=== PATIENT | female | born 1980 | race Caucasian/White ===

== ENCOUNTER 2018-05-09 17:01 | Observation (INO) | payer OTHER, BC ==
--- NOTE | 2018-05-09 17:25 | PDOC ---
Rapid Medical Evaluation Time Seen by Provider: 05/09/18 17:24 Medical Evaluation: Allergies Allergy/AdvReac Type Severity Reaction Status Date / Time No Known Allergies Allergy Verified 05/09/18 17:21 05/09/18 17:24 I have performed a brief in-person evaluation of this patient. The patient presents with a chief complaint of: R sided abd pain w/ n/v x 3 days Pertinent physical exam findings:Stable and well [place] w/ +ttp to RUQ I have ordered the following: labs The patient will proceed to the ED for further evaluation. 05/09/18 17:26 Discharge Disposition - Diagnosis Abdominal pain Qualifiers: Abdominal location: right upper quadrant Qualified Code(s): R10.11 - Right upper quadrant pain - Referrals - Patient Instructions - Post Discharge Activity
--- NOTE | 2018-05-09 19:16 | PDOC ---
History of Present Illness - General Chief Complaint: Pain, Acute Stated Complaint: RT SIDED ABD PAIN Time Seen by Provider: 05/09/18 17:24 History Source: Patient Exam Limitations: No Limitations - History of Present Illness Initial Comments: 05/09/18 20:59 37F with pmh of DM1 presents to the ED for URQ abdominal pain radiating down the lower abdoment. Had multiple episode of non-bilious vomiting today and pain is worse than it's even been, No hisory of gallstones, kidney stones, appendicitis, diarrhea. 05/09/18 21:04 Past History - Past Medical History Allergies/Adverse Reactions: Allergies Allergy/AdvReac Type Severity Reaction Status Date / Time No Known Allergies Allergy Verified 05/09/18 17:21 Asthma: Yes COPD: No Diabetes: Yes - Suicide/Smoking/Psychosocial Hx Smoking History: Never smoked Review of Systems - Review of Systems Able to Perform ROS?: Yes Is the patient limited Italian proficient: No Constitutional: No: Symptoms Reported HEENTM: No: Symptoms Reported Respiratory: No: Symptoms reported Cardiac (ROS): No: Symptoms Reported ABD/GI: Yes: See HPI : No: Symptoms Reported Musculoskeletal: No: Symptoms Reported Integumentary: No: Symptoms Reported Neurological: No: Symptoms reported All Other Systems: Reviewed and Negative *Physical Exam - Vital Signs Last Vital Signs Temp Pulse Resp BP Pulse Ox 98.4 F 106 H 19 130/76 98 05/09/18 17:22 05/09/18 17:22 05/09/18 17:22 05/09/18 17:22 05/09/18 17:22 - Physical Exam General Appearance: Yes: Nourished, Appropriately Dressed. No: Apparent Distress HEENT: positive: EOMI, BARB, Normal ENT Inspection Respiratory/Chest: positive: Lungs Clear, Normal Breath Sounds. negative: Chest Tender, Respiratory Distress Cardiovascular: positive: Regular Rhythm, S1, S2, Tachycardia Gastrointestinal/Abdominal: positive: Normal Bowel Sounds, Tender (Upper right quadrant, positive solorzano), Flat, Soft Musculoskeletal: positive: Normal Inspection. negative: CVA Tenderness Extremity: positive: Normal Capillary Refill, Normal Inspection, Normal Range of Motion Integumentary: positive: Normal Color, Dry, Warm Neurologic: positive: Fully Oriented, Alert, Normal Mood/Affect, Normal Response ED Treatment Course - LABORATORY CBC & Chemistry Diagram: 05/09/18 19:53 05/09/18 19:53 Medical Decision Making - Medical Decision Making 05/09/18 21:07 Basic labs normal, sugar slightly elevated, will start on fluids. Bedside US, positive sonography Solorzano's seems positive for sludge and stone. Official Ultrasound negative except for diffuse fatty infiltration of liver. Called Dr. Kern radiologist for second read as it appeear to be sludge in the gallbladder . Will reassess patient and dispo. 05/09/18 23:24 CT Abdomen: 1. Diffuse fatty infiltration of the liver. 2. Cholelithiasis without evidence of acute cholecystitis. 3. Multiple appendicoliths with no CT evidence of acute appendicitis. 4. Right ovarian cyst. Please see above discussion. *DC/Admit/Observation/Transfer Diagnosis at time of Disposition: Abdominal pain Qualifiers: Abdominal location: right upper quadrant Qualified Code(s): R10.11 - Right upper quadrant pain - Discharge Dispostion Disposition: HOME Condition at time of disposition: Improved Decision to Admit order: No - Referrals Referrals: Michael Smith MD [Staff Physician] - - Patient Instructions Printed Discharge Instructions: DI for Gallstones Additional Instructions: Follow up with your squash centre manager Dr. Smith within the next or if symptoms persist. Come back to the ER for any new, worsening or concerning symptom. - Post Discharge Activity
--- NOTE | 2018-05-09 19:19 | PDOC ---
Attending Attestation - HPI HPI: 05/09/18 20:17 The patient is a 37 year old female with a significant PMH of diabetes and c- section who presents to the emergency department with right sided abdominal pain for 3 days. She describes her abdominal pain as crampy and a 5/10 in intensity. She states that her abdominal pain radiates to her right thigh and she feels bloated. The patient reports that she finished her menstrual period 3 days ago. The patient states that she thought her pain was associated with her period but states that her menstrual period ended prior to the onset of abdominal pain. She reports some associated nausea and an episode of emesis at 2 :30pm today. She denies any alcohol , drug use or smoking. The patient denies any flank pain or rashes. She denies any other symptoms. She denies any fever, chills, diarrhea, constipation or urinary symptoms. She denies any chest pain, shortness of breath, headache and dizziness. The patient denies any other complaints. - Physicial Exam PE: 05/09/18 20:17 GENERAL: Awake, alert, and fully oriented, in no acute distress HEAD: No signs of trauma EYES: PERRLA, EOMI, sclera anicteric, conjunctiva clear ENT: Auricles normal inspection, hearing grossly normal, nares patent, oropharynx clear without exudates. Moist mucosa NECK: Normal ROM, supple, no lymphadenopathy, JVD, or masses LUNGS: Breath sounds equal, clear to auscultation bilaterally. No wheezes, and no crackles HEART: Regular rate and rhythm, normal S1 and S2, no murmurs, rubs or gallops ABDOMEN: (+)minimum rebound at RUQ, pain with palpation or right upper quadrant with equal intensity. Soft, nontender, normoactive bowel sounds. No guarding. No masses EXTREMITIES: Normal range of motion, no edema. No clubbing or cyanosis. No cords, erythema, or tenderness NEUROLOGICAL: Cranial nerves II through XII grossly intact. Normal speech, normal gait SKIN: Warm, Dry, normal turgor, no rashes or lesions noted. Documentation prepared by Terri Carr, acting as medical and health services manager for Phuong Kaufman MD. <Terri Carr - Last Filed: 05/09/18 20:17> - Resident Resident Name: Garfield Casillas - ED Attending Attestation I have performed the following: I have examined & evaluated the patient, The case was reviewed & discussed with the resident, I agree w/resident's findings & plan - Medical Decision Making 05/09/18 21:10 Labs normal; exam normal, other than mild right sided pain. Sono normal. 05/10/18 00:02 Surgery wants to observe the patient overnight; we will admit to the hospitalist under med surg obs. Surgeon is requesting that we REFRAIN from giving analgesics and antibiotics overnight. 6AM pre-op labs requested. Finally pt will be reevaluated tomorrow. <Phuong Kaufman - Last Filed: 05/10/18 00:50>
[2018-05-09] MEDS ORDERED: SODIUM CHLORIDE 1,000 ML IV STA (19:55)
[2018-05-09 20:12] LABS: BASO % 0.7 % (0-2.0); EOS % 1.3 % (0-4.5); HEMATOCRIT 41.8 % (32.4-45.2); HEMOGLOBIN 14.3 GM/dL (10.7-15.3); LYMPH % 22.6 % (8-40); MCH 28.1 pg (25.7-33.7); MCHC 34.1 g/dl (32.0-36.0); MEAN CELL VOLUME 82.2 fl (80-96); MEAN PLT VOLUME 8.7 fl (7.5-11.1); MONO % 5.8 % (3.8-10.2); NEUT % 69.6 % (42.8-82.8); PLATELET COUNT 394 K/MM3 (134-434); RBC 5.08 M/mm3 (3.60-5.2); RDW 13.4 % (11.6-15.6); WHITE BLOOD COUNT 9.4 K/mm3 (4.0-10.0)
[2018-05-09 20:36] LABS: ALBUMIN 3.5 g/dl (3.4-5.0); ANION GAP 8 (8-16); BILIRUBIN,TOTAL 0.3 mg/dL (0.2-1.0); BLOOD UREA NITROGEN 12 mg/dL (7-18); CHLORIDE 102 mmol/L (98-107); CO2 29 mmol/L (21-32); CREATININE 0.4 mg/dL (0.55-1.02); GLUCOSE,RANDOM 168 mg/dL (74-106); POTASSIUM 4.2 mmol/L (3.5-5.1); SGOT/AST 17 U/L (15-37); SGPT/ALT 31 U/L (12-78); SODIUM 139 mmol/L (136-145); TOT PROT 7.6 g/dl (6.4-8.2)
[2018-05-09 20:37] LABS: ALK PHOS 90 U/L (45-117)
[2018-05-09 20:42] LABS: LIPASE 380 U/L (73-393)
[2018-05-09 20:44] LABS: URINE APPEARANCE CLOUDY; URINE BILIRUBIN NEGATIVE (<2.0 mg/dL); URINE COLOR AMBER; URINE GLUCOSE (UA) 3+ (NEGATIVE); URINE KETONE NEGATIVE (NEGATIVE); URINE LEUK ESTERASE NEGATIVE (NEGATIVE); URINE NITRITE NEGATIVE (NEGATIVE); URINE UROBILINOGEN NEGATIVE mg/dL (0.2-1.0)
[2018-05-09 20:45] LABS: URINE PROTEIN 1+ (NEGATIVE)
[2018-05-09 21:08] LABS: EPI CELLS RARE /HPF (FEW); URINE MUCUS RARE
--- NOTE | 2018-05-10 00:59 | PDOC ---
*Physical Exam - Vital Signs Last Vital Signs Temp Pulse Resp BP Pulse Ox 98.4 F 106 H 19 130/76 98 05/09/18 17:22 05/09/18 17:22 05/09/18 17:22 05/09/18 17:22 05/09/18 17:22 ED Treatment Course - LABORATORY CBC & Chemistry Diagram: 05/11/18 06:00 05/11/18 06:00 - ADDITIONAL ORDERS Additional order review: Laboratory Results 05/09/18 05/09/18 05/09/18 19:53 19:25 19:25 Sodium 139 Potassium 4.2 Chloride 102 Carbon Dioxide 29 Anion Gap 8 BUN 12 Creatinine 0.4 L Creat Clearance w eGFR > 60 Random Glucose 168 H Calcium 10.0 Total Bilirubin 0.3 AST 17 ALT 31 Alkaline Phosphatase 90 Total Protein 7.6 Albumin 3.5 Lipase 380 Urine Color Hattie Urine Appearance Cloudy Urine pH 6.0 Ur Specific [place] 1.013 Urine Protein 1+ H Urine Glucose (UA) 3+ H Urine Ketones Negative Urine Blood 1+ H Urine Nitrite Negative Urine Bilirubin Negative Urine Urobilinogen Negative Ur Leukocyte Esterase Negative Urine WBC (Auto) 1 Urine RBC (Auto) <1 Ur Epithelial Cells Rare Urine Mucus Rare Urine HCG, Qual Negative 05/09/18 19:53 RBC 5.08 MCV 82.2 MCHC 34.1 RDW 13.4 MPV 8.7 Neutrophils % 69.6 Lymphocytes % 22.6 Monocytes % 5.8 Eosinophils % 1.3 Basophils % 0.7 - RADIOLOGY Radiology Studies Ordered: Category Date Time Status ABDOMEN US -LIMITED [US] Stat Ultrasound 05/09/18 19:56 Completed - Medications Given in the ED: ED Medications Discontinued Medications Generic Name Dose Route Start Last Admin Trade Name Freq PRN Reason Stop Dose Admin Sodium Chloride 1,000 mls @ 1,000 mls/hr 05/09/18 19:55 05/09/18 20:15 Normal Saline - IV 05/09/18 20:54 1,000 mls/hr ASDIR STA Administration Medical Decision Making - Medical Decision Making 05/12/18 20:54 Surgery is asking that we refrain from giving patient pain control or antibiotics. Patient admitted to med surg observation *DC/Admit/Observation/Transfer Diagnosis at time of Disposition: Abdominal pain - Discharge Dispostion Condition at time of disposition: Stable Decision to Admit order: Yes - Referrals - Patient Instructions - Post Discharge Activity
[2018-05-10 03:17] VITALS: BMI 26.3
--- NOTE | 2018-05-10 04:09 | PN ---
Teaching Attending Note Name of Resident: Rachell Cook ATTENDING PHYSICIAN STATEMENT I saw and evaluated the patient. I reviewed the resident's note and discussed the case with the resident. I agree with the resident's findings and plan as documented. SUBJECTIVE: Patient is a 37 year old woman history of insulin-treated DM and who presents to the ER with right sided abdominal pain for 3 days. She describes her abdominal pain as crampy and a 5/10 in intensity. She states that her abdominal pain radiates to her right thigh and she feels bloated. The patient reports that she finished her menstrual period 3 days ago. The patient states that she thought her pain was associated with her period but states that her menstrual period ended prior to the onset of abdominal pain. She reports some associated nausea and an episode of vomiting today. She denies any alcohol use, drug use or smoking. The patient denies chills, diarrhea, urinary symptoms, shortness of breath, or headache. OBJECTIVE: Alert. In no acute distress Vital Signs Period Temp Pulse Resp BP Sys/[place] Pulse Ox Last 24 Hr 98.0 F-98.4 F 106-111 18-19 130-137/76-84 98-100 HEENT: No Jaundice, eye redness or discharge, PERRLA, EOMI. Normocephalic, atraumatic. External ears are normal and hearing is grossly intact. No nasal discharge. Neck: Supple, nontender. No palpable adenopathy or thyromegaly. No JVD Chest: Good effort. Clear to auscultation and percussion. Heart: Regular. No S3, rub or murmur Abdomen: Not distended, soft, RUQ tenderness; no HSM. No rebound or guarding. Normoactive bowel sounds. Ext: Peripheral pulses intact. No leg edema. Skin: Warm and dry. No petechiae, rash or ecchymosis. Neuro: Alert. Oriented x3. CN 2-12 grossly intact. Sensation grossly intact in all four extremities and DTR are symmetric. Abnormal Lab Results 05/09/18 05/09/18 19:25 19:53 Creatinine 0.4 L Random Glucose 168 H Urine Protein 1+ H Urine Glucose (UA) 3+ H Urine Blood 1+ H ASSESSMENT AND PLAN: 1. Abdominal pain - Main concern is for appendicitis. CT abdomen shows multiple appendicoliths, right ovarian cyst, cholelithiaisis and fatty liver. oracle manufacturing consultant recommends no antibiotics or analgesics for now. Patient will be monitored closely and revaluated in the morning by the surgeon with possible repeat CT scan of the abdomen if she remains symptomatic . Meantime, will keep her NPO and give with IV NS at 75 ml/hour. 2. DM - For now, we will hold the home diabetes drugs and implement sliding scale insulin regimen. Provide comprehensive diabetes care with patient teaching and counseling about the importance of euglycemia, eye care and foot care. 3. DVT prophylaxis - Heparin 5000u sq tid. 4. Advance directives - Full code
--- NOTE | 2018-05-10 05:50 | HP ---
CHIEF COMPLAINT: Right Abdominal Pain PCP: HISTORY OF PRESENT ILLNESS: 37 y/o F presents with right sided abdominal pain accompanied with bloating, nausea and NBNB vomiting for the past 3 days. This is the first time she has experienced pain like this. She describes the pain as 5/10, crampy pain that travels from her RUQ to the lower quadrant and upper thigh. Patient says she has been unable to roll over or turn to often as these cause pain. Denies any remitting or exacerbating factors. Of note, patient has completed her menstrual period 3 days ago. Patient denies fevers, chills, chest pain, SOB, diarrhea, constipation. ER course was notable for: (1) ABD US, CTAP (2) UA: 1+ Protein, 3+ Glucose, 1+ blood, 1 wbc (3) Recent Travel: Denies PAST MEDICAL HISTORY: IDDM Asthma PAST SURGICAL HISTORY: x1 Social History: Smoking: Denies Alcohol: Denies Drugs: Denies Family History: DM HTN HLD Kidney failure Stroke Fatty liver Allergies No Known Allergies Allergy (Verified 05/09/18 17:21) HOME MEDICATIONS: REVIEW OF SYSTEMS CONSTITUTIONAL: Absent: fever, chills, diaphoresis, generalized weakness, malaise, loss of appetite, weight change HEENT: Absent: rhinorrhea, nasal congestion, throat pain, throat swelling, difficulty swallowing, mouth swelling, ear pain, eye pain, visual changes CARDIOVASCULAR: Absent: chest pain, syncope, palpitations, irregular heart rate, lightheadedness , peripheral edema RESPIRATORY: Absent: cough, shortness of breath, dyspnea with exertion, orthopnea, wheezing, stridor, hemoptysis GASTROINTESTINAL: Present: abdominal pain,, nausea, vomiting, Absent: abdominal distension, diarrhea, constipation, melena, hematochezia GENITOURINARY: Absent: dysuria, frequency, urgency, hesitancy, hematuria, flank pain, genital pain MUSCULOSKELETAL: Absent: myalgia, arthralgia, joint swelling, back pain, neck pain SKIN: Absent: rash, itching, pallor HEMATOLOGIC/IMMUNOLOGIC: Absent: easy bleeding, easy bruising, lymphadenopathy, frequent infections ENDOCRINE: Absent: unexplained weight gain, unexplained weight loss, heat intolerance, cold intolerance NEUROLOGIC: Absent: headache, focal weakness or paresthesias, dizziness, unsteady gait, seizure, mental status changes, bladder or bowel incontinence PSYCHIATRIC: Absent: anxiety, depression, suicidal or homicidal ideation, hallucinations. PHYSICAL EXAMINATION Vital Signs - 24 hr 05/09/18 05/10/18 05/10/18 17:22 01:08 02:30 Temperature 98.4 F 98.0 F Pulse Rate 106 H 111 H Pulse Rate [ Left Radial] Respiratory 19 18 Rate Blood Pressure 130/76 137/84 Blood Pressure [Left Arm] O2 Sat by Pulse 98 98 Oximetry (%) 05/10/18 02:33 Temperature 98.0 F Pulse Rate Pulse Rate [ 111 H Left Radial] Respiratory 18 Rate Blood Pressure Blood Pressure 137/84 [Left Arm] O2 Sat by Pulse 100 Oximetry (%) GENERAL: Awake, alert, and fully oriented, in no acute distress. EYES: PERRL, EOMI, sclera anicteric. THROAT: Oropharynx clear without exudates. Moist mucous membranes. NECK: No JVD LUNGS: Breath sounds equal, clear to auscultation bilaterally. No wheezes. HEART: Regular rate and rhythm, normal S1 and S2 without murmur, rub or gallop. ABDOMEN: Soft, RUQ Tender to palpation, not distended, normoactive bowel sounds , no guarding, no rebound. MUSCULOSKELETAL: Normal range of motion at all joints. No CVA tenderness. EXTREMITIES: 2+ pulses, No peripheral edema. NEUROLOGICAL: Cranial nerves II-XII intact. Gross sensation intact in all four extremities. Laboratory Results - last 24 hr 05/09/18 05/09/18 05/09/18 19:25 19:25 19:53 WBC 9.4 RBC 5.08 Hgb 14.3 Hct 41.8 MCV 82.2 MCH 28.1 MCHC 34.1 RDW 13.4 Plt Count 394 MPV 8.7 Absolute Neuts (auto) 6.6 Neutrophils % 69.6 Lymphocytes % 22.6 Monocytes % 5.8 Eosinophils % 1.3 Basophils % 0.7 Nucleated RBC % 0 Sodium Potassium Chloride Carbon Dioxide Anion Gap BUN Creatinine Creat Clearance w eGFR Random Glucose Calcium Total Bilirubin AST ALT Alkaline Phosphatase Total Protein Albumin Lipase Urine Color Hattie Urine Appearance Cloudy Urine pH 6.0 Ur Specific [place] 1.013 Urine Protein 1+ H Urine Glucose (UA) 3+ H Urine Ketones Negative Urine Blood 1+ H Urine Nitrite Negative Urine Bilirubin Negative Urine Urobilinogen Negative Ur Leukocyte Esterase Negative Urine WBC (Auto) 1 Urine RBC (Auto) <1 Ur Epithelial Cells Rare Urine Mucus Rare Urine HCG, Qual Negative 05/09/18 19:53 WBC RBC Hgb Hct MCV MCH MCHC RDW Plt Count MPV Absolute Neuts (auto) Neutrophils % Lymphocytes % Monocytes % Eosinophils % Basophils % Nucleated RBC % Sodium 139 Potassium 4.2 Chloride 102 Carbon Dioxide 29 Anion Gap 8 BUN 12 Creatinine 0.4 L Creat Clearance w eGFR > 60 Random Glucose 168 H Calcium 10.0 Total Bilirubin 0.3 AST 17 ALT 31 Alkaline Phosphatase 90 Total Protein 7.6 Albumin 3.5 Lipase 380 Urine Color Urine Appearance Urine pH Ur Specific [place] Urine Protein Urine Glucose (UA) Urine Ketones Urine Blood Urine Nitrite Urine Bilirubin Urine Urobilinogen Ur Leukocyte Esterase Urine WBC (Auto) Urine RBC (Auto) Ur Epithelial Cells Urine Mucus Urine HCG, Qual Active Medications Heparin Sodium (Porcine) (Heparin -) 5,000 unit SQ TID [place] Sodium Chloride (Normal Saline -) 1,000 mls @ 75 mls/hr IV ASDIR [place] IMAGING: - Abdominal US: Diffuse fatty infiltration of the liver - CT A/P: Diffuse fatty infiltration of the liver, Cholelithiasis without evidence of acute cholecystitis, Multiple appendicoliths with no CT Evidence of acute appendicitis, Right ovarian cyst ASSESSMENT/PLAN: 37 y/o F presents with right sided abdominal pain accompanied with bloating, nausea and NBNB vomiting for the past 3 days was found to have cholelithiasis and multiple appendicoliths, and was admitted to r/o cholecystitis and appendicitis. 1. Abdominal pain - R/o cholecystitis and appendicitis - RUQ Tenderness that radiates down to the thigh, AFebrile, No WBC Count - CT A/P: Cholelithiasis without evidence of acute cholecystitis, Multiple appendicoliths with no CT Evidence of acute appendicitis - Surgery (Dr. Plunkett) Consulted, Appreciate rec's, No Antibiotics or analgesics for now - Keep NPO, IV NS at 75 ml/hour - Continue to monitor closely - Follow up Right ovarian cyst on CTAP with ships equipment engineer as outpatient 2. IDDM - BG 168 - ISS, hold home meds - BGM ACHS 3. FEN - Normal Saline @ 75 mls/hr IV - Lytes wnl, replete as needed - NPO pending possible surgery 4. PPX - DVT: Heparin 5000u AQ TID Dispo: Admit to obs Visit type - Emergency Visit Emergency Visit: Yes ED Registration Date: 05/10/18 Care time: The patient presented to the Emergency Department on the above date and was hospitalized for further evaluation of their emergent condition. - New Patient This patient is new to me today: Yes Date on this admission: 05/10/18 - Critical Care Critical Care patient: No Hospitalist Screening - Colonoscopy Questionnaire Colonoscopy Questionnaire: Colonoscopy Questionnaire - Patient: 50 - 75 years old and never had a screening colonoscopy: Unknown History of colon or rectal polyps, or CA: Unknown History of IBD, Crohn's disease or UC: Unknown History of abdominal radiation therapy as a child: Unknown - Relative: 1 with colon or rectal CA, or polyps at age 60 or younger: Unknown Colon or rectal CA diagnosed at age 45 or younger: Unknown Multiple relatives with colon or rectal CA: Unknown - Outcome: Screening Result: Negative Screen
[2018-05-10] MEDS: HEPARIN NA (PORCINE) 5,000 UNITS/ML 1ML VIAL SQ SCH ×4 (06:10→21:40)
[2018-05-10] MEDS: SODIUM CHLORIDE 1,000 ML IV SCH ×2 (06:10→22:07)
[2018-05-10 07:53] LABS: BASO % 0.4 % (0-2.0); EOS % 2.7 % (0-4.5); HEMOGLOBIN 13.1 GM/dL (10.7-15.3); LYMPH % 34.3 % (8-40); MCHC 35.5 g/dl (32.0-36.0); MEAN CELL VOLUME 81.5 fl (80-96); MEAN PLT VOLUME 8.6 fl (7.5-11.1); MONO % 7.2 % (3.8-10.2); NEUT % 55.4 % (42.8-82.8); PLATELET COUNT 341 K/MM3 (134-434); RBC 4.54 M/mm3 (3.60-5.2); RDW 13.3 % (11.6-15.6); WHITE BLOOD COUNT 8.6 K/mm3 (4.0-10.0)
[2018-05-10 08:08] LABS: CHLORIDE 104 mmol/L (98-107); SODIUM 140 mmol/L (136-145)
[2018-05-10 08:23] LABS: ALK PHOS 72 U/L (45-117); ANION GAP 8 (8-16); BILIRUBIN,TOTAL 0.3 mg/dL (0.2-1.0); BLOOD UREA NITROGEN 11 mg/dL (7-18); CALCIUM 8.7 mg/dL (8.5-10.1); CO2 28 mmol/L (21-32); CREATININE 0.4 mg/dL (0.55-1.02); GLUCOSE,RANDOM 126 mg/dL (74-106); MAGNESIUM 1.7 mg/dL (1.8-2.4); PHOSPHOROUS 3.6 mg/dL (2.5-4.9); SGOT/AST 19 U/L (15-37); SGPT/ALT 30 U/L (12-78); TOT PROT 6.6 g/dl (6.4-8.2)
--- NOTE | 2018-05-10 10:09 | PN ---
Physical Exam: SUBJECTIVE: Patient seen and examined Mild mid epigastric pain, no fever or chills, no shortness of breath. OBJECTIVE: Vital Signs Temperature 97.6 F 05/10/18 06:00 Pulse Rate 92 H 05/10/18 06:00 Respiratory Rate 18 05/10/18 06:00 Blood Pressure 113/63 05/10/18 06:00 O2 Sat by Pulse Oximetry (%) 100 05/10/18 02:33 GENERAL: Awake, alert, and fully oriented, in no acute distress. EYES: PERRL, EOMI, sclera anicteric. THROAT: Oropharynx clear without exudates. Moist mucous membranes. NECK: No JVD LUNGS: Breath sounds equal, clear to auscultation bilaterally. No wheezes. HEART: Regular rate and rhythm, normal S1 and S2 without murmur, rub or gallop. ABDOMEN: Soft, RUQ mild tenderness to palpation, not distended, normoactive bowel sounds, no guarding, no rebound. MUSCULOSKELETAL: Normal range of motion at all joints. No CVA tenderness. EXTREMITIES: 2+ pulses, No peripheral edema. NEUROLOGICAL: Cranial nerves II-XII intact. Gross sensation intact in all four extremities. CBCD WBC 8.6 K/mm3 (4.0-10.0) 05/10/18 06:00 RBC 4.54 M/mm3 (3.60-5.2) 05/10/18 06:00 Hgb 13.1 GM/dL (10.7-15.3) 05/10/18 06:00 Hct 37.0 % (32.4-45.2) 05/10/18 06:00 MCV 81.5 fl (80-96) 05/10/18 06:00 MCHC 35.5 g/dl (32.0-36.0) 05/10/18 06:00 RDW 13.3 % (11.6-15.6) 05/10/18 06:00 Plt Count 341 K/MM3 (134-434) 05/10/18 06:00 MPV 8.6 fl (7.5-11.1) 05/10/18 06:00 CMP Sodium 140 mmol/L (136-145) 05/10/18 06:00 Potassium 4.0 mmol/L (3.5-5.1) 05/10/18 06:00 Chloride 104 mmol/L (98-107) 05/10/18 06:00 Carbon Dioxide 28 mmol/L (21-32) 05/10/18 06:00 Anion Gap 8 (8-16) 05/10/18 06:00 BUN 11 mg/dL (7-18) 05/10/18 06:00 Creatinine 0.4 mg/dL (0.55-1.02) L 05/10/18 06:00 Creat Clearance w eGFR > 60 (>60) 05/10/18 06:00 Random Glucose 126 mg/dL (74-106) H 05/10/18 06:00 Calcium 8.7 mg/dL (8.5-10.1) 05/10/18 06:00 Total Bilirubin 0.3 mg/dL (0.2-1.0) 05/10/18 06:00 AST 19 U/L (15-37) 05/10/18 06:00 ALT 30 U/L (12-78) 05/10/18 06:00 Alkaline Phosphatase 72 U/L (45-117) D 05/10/18 06:00 Total Protein 6.6 g/dl (6.4-8.2) 05/10/18 06:00 Albumin 3.0 g/dl (3.4-5.0) L 05/10/18 06:00 Current Medications Generic Name Dose Route Start Last Admin Trade Name Freq PRN Reason Stop Dose Admin Heparin Sodium (Porcine) 5,000 unit 05/10/18 06:00 05/10/18 07:28 Heparin - SQ Not Given TID [facility] Sodium Chloride 1,000 mls @ 75 mls/hr 05/10/18 06:00 05/10/18 06:10 Normal Saline - IV 75 mls/hr ASDIR [facility] Administration Home Medications Medication Instructions Recorded [place] Kwikpen U-100 05/10/18 Novolog Flexpen See Protocol 05/10/18 a/P: Patient is a 37 year old woman history of insulin-treated DM and who presents to the ER with right sided abdominal pain for 3 days # RUQ Abdominal pain - surgical evaluation for possible surgery for lap.gabi. # DM - SS WITH COVERAGE DVT prophylaxis - Heparin 5000u sq tid. Advance directives - Full code Visit type - Emergency Visit Emergency Visit: Yes ED Registration Date: 05/10/18 Care time: The patient presented to the Emergency Department on the above date and was hospitalized for further evaluation of their emergent condition. - New Patient This patient is new to me today: Yes Date on this admission: 05/10/18 - Critical Care Critical Care patient: No - Discharge Referral [facility]erred to [facility] No
--- NOTE | 2018-05-10 15:37 | CONSULT ---
Consult Consult Specialty:: General Surgery Reason for Consultation:: Right abdominal pain - History of Present Illness Chief Complaint: Right abdominal Pain History of Present Illness: 37 yo female PMH fatty liver and DM type 1 presented with one week of right sided abdominal pain accompanied with bloating, nausea and NBNB vomiting for the past 3 days. This is the first time she has experienced pain like this. She describes the pain as 5/10, crampy pain that travels from her RUQ to the lower quadrant and upper thigh. Patient says she has been unable to roll over or turn to often as these cause pain. Denies any remitting or exacerbating factors. Of note, patient has completed her menstrual period 3 days ago. She reports no previous endoscopy upper or lower. No change in bowel habits, baseline constipation 2-3times elimination per week. She had a 30lbs weight loss over 1.5 years attributed to her diabetic control by PMD. no personal history of malignancy. family history of gastric and breast CA. Abdominal pain has improved without intervention: antibiotics or pain medication. We were asked to assess. - History Source History Provided By: Patient, Medical Record - Past Medical History ...LMP: 05/08/18 ...: No Endocrine: Yes: Diabetes Mellitus (type 1 on insulin) - Alcohol/Substance Use Hx Alcohol Use: No - Smoking History Smoking history: Never smoked Home Medications - Allergies Allergies/Adverse Reactions: Allergies Allergy/AdvReac Type Severity Reaction Status Date / Time No Known Allergies Allergy Verified 05/09/18 17:21 Review of Systems - Review of Systems Constitutional: denies: Chills, Fever Eyes: denies: Blurred Vision, Recent Change in Vision HENT: denies: Difficult Swallowing, Throat Pain Neck: denies: Stiffness, Tenderness Cardiovascular: denies: Chest Pain, Palpitations Respiratory: denies: Cough, SOB Gastrointestinal: reports: Abdominal Pain, Bloating, Indigestion. denies: Constipation, Diarrhea Genitourinary: denies: Discharge, Dysuria Breasts: denies: Pain Musculoskeletal: denies: Muscle Cramps, Muscle Weakness Integumentary: denies: Bruising, Erythema Neurological: denies: Seizure, Syncope Endocrine: reports: Unexplained Weight Loss (diabetic control related 30lbs in 1.5 years). denies: Unexplained Weight Gain Hematology/Lymphatic: denies: Easily Bruised, Excessive Bleeding Psychiatric: denies: Anxiety, Depression Physical Exam Vital Signs: Vital Signs Temperature 97.8 F 05/10/18 14:18 Pulse Rate 92 H 05/10/18 14:18 Respiratory Rate 18 05/10/18 14:18 Blood Pressure 108/73 05/10/18 14:18 O2 Sat by Pulse Oximetry (%) 100 05/10/18 02:33 Constitutional: Yes: Well Nourished, No Distress Eyes: Yes: Conjunctiva Clear, EOM Intact HENT: Yes: Atraumatic, Normocephalic Neck: Yes: Supple, Trachea Midline Cardiovascular: Yes: Regular Rate and Rhythm, S1, S2 Respiratory: Yes: Regular, CTA Bilaterally Gastrointestinal: Yes: Normal Bowel Sounds, Soft, Tenderness. No: Ascites, Tenderness, Epigastrium, Tenderness, Rebound (RUQ discomfort on deep palpation) ...Rectal Exam: Yes: Sphincter Tone Normal. No: Inflammation, Mass Labs: CBC, BMP 05/10/18 06:00 05/10/18 06:00 Imaging - Results Cat Scan: Report Reviewed, Image Reviewed Ultrasound: Report Reviewed, Image Reviewed Problem List - Problems (1) Abdominal pain in female patient Assessment/Plan: 37yo female with right sided abdominal pain, WBC normal, no shift, afebrile. Minimal discomfort on exam. Radiology reviewed large appendicolithis and tiny dependent gallstones on CT scan without acute inflammatory findings. She does not require acute surgical intervention at this time. The plan for observation and appropriate early followup was discussed with the patient. Advance diet as tolerated IVF hydration Serial exam F/u if symptoms return Thank you for the opportunity to participate in the care of this patient. Code(s): R10.9 - UNSPECIFIED ABDOMINAL PAIN (2) Biliary colic Code(s): K80.50 - CALCULUS OF BILE DUCT W/O CHOLANGITIS OR CHOLECYST W/O OBST (3) Appendicolith Code(s): K38.9 - DISEASE OF APPENDIX, UNSPECIFIED (4) Diabetes mellitus Code(s): E11.9 - TYPE 2 DIABETES MELLITUS WITHOUT COMPLICATIONS Qualifiers: Diabetes mellitus type: type 1 Diabetes mellitus complication status: without complication Qualified Code(s): E10.9 - Type 1 diabetes mellitus without complications (5) Fatty liver Code(s): K76.0 - FATTY (CHANGE OF) LIVER, NOT ELSEWHERE CLASSIFIED
[2018-05-10] MEDS ORDERED: INSULIN (NOVOLOG) ASPART 100 UNITS/ML 10ML VIAL ONE (20:33)
[2018-05-10] MEDS: INSULIN SLIDING SCALE (NOVOLOG) 1 VIAL SQ SCH (21:41)
[2018-05-10] MEDS ORDERED: INSULIN (LEVEMIR) 100 UNITS/ML UNITS SQ SCH (22:00)
--- NOTE | 2018-05-11 03:53 | PN ---
Physical Exam: SUBJECTIVE: Patient seen and examined OBJECTIVE: Vital Signs Period Temp Pulse Resp BP Sys/Naranjo Pulse Ox Last 24 Hr 97.6 F-98 F 89-100 18-18 108-149/63-86 100-100 GENERAL: The patient is awake, alert, and fully oriented, in no acute distress. HEAD: Normal with no signs of trauma. EYES: PERRL, extraocular movements intact, sclera anicteric, conjunctiva clear. No ptosis. ENT: Ears normal, nares patent, oropharynx clear without exudates, moist mucous membranes. NECK: Trachea midline, full range of motion, supple. LUNGS: Breath sounds equal, clear to auscultation bilaterally, no wheezes, no crackles, no accessory muscle use. HEART: Regular rate and rhythm, S1, S2 without murmur, rub or gallop. ABDOMEN: Soft, nontender, nondistended, normoactive bowel sounds, no guarding, no rebound, no hepatosplenomegaly, no masses. EXTREMITIES: 2+ pulses, warm, well-perfused, no edema. NEUROLOGICAL: Cranial nerves II through XII grossly intact. Normal speech, gait not observed. PSYCH: Normal mood, normal affect. SKIN: Warm, dry, normal turgor, no rashes or lesions noted Laboratory Results - last 24 hr 05/10/18 05/10/18 05/10/18 06:00 06:00 06:09 WBC 8.6 RBC 4.54 Hgb 13.1 Hct 37.0 MCV 81.5 MCH 29.0 MCHC 35.5 RDW 13.3 Plt Count 341 MPV 8.6 Absolute Neuts (auto) 4.7 Neutrophils % 55.4 D Lymphocytes % 34.3 D Monocytes % 7.2 Eosinophils % 2.7 D Basophils % 0.4 Nucleated RBC % 0 Sodium 140 Potassium 4.0 Chloride 104 Carbon Dioxide 28 Anion Gap 8 BUN 11 Creatinine 0.4 L Creat Clearance w eGFR > 60 POC Glucometer 131 Random Glucose 126 H Calcium 8.7 Phosphorus 3.6 Magnesium 1.7 L Total Bilirubin 0.3 AST 19 ALT 30 Alkaline Phosphatase 72 D Total Protein 6.6 Albumin 3.0 L Blood Type Antibody Screen 05/10/18 05/10/18 05/10/18 12:18 16:20 18:01 WBC RBC Hgb Hct MCV MCH MCHC RDW Plt Count MPV Absolute Neuts (auto) Neutrophils % Lymphocytes % Monocytes % Eosinophils % Basophils % Nucleated RBC % Sodium Potassium Chloride Carbon Dioxide Anion Gap BUN Creatinine Creat Clearance w eGFR POC Glucometer 144 207 Random Glucose Calcium Phosphorus Magnesium Total Bilirubin AST ALT Alkaline Phosphatase Total Protein Albumin Blood Type O POSITIVE Antibody Screen Negative 05/10/18 05/10/18 19:35 21:38 WBC RBC Hgb Hct MCV MCH MCHC RDW Plt Count MPV Absolute Neuts (auto) Neutrophils % Lymphocytes % Monocytes % Eosinophils % Basophils % Nucleated RBC % Sodium Potassium Chloride Carbon Dioxide Anion Gap BUN Creatinine Creat Clearance w eGFR POC Glucometer 174 Random Glucose Calcium Phosphorus Magnesium Total Bilirubin AST ALT Alkaline Phosphatase Total Protein Albumin Blood Type O POSITIVE Antibody Screen Active Medications Generic Name Dose Route Start Last Admin Trade Name Freq PRN Reason Stop Dose Admin Heparin Sodium (Porcine) 5,000 unit 05/10/18 06:00 05/10/18 21:40 Heparin - SQ 5,000 unit TID FRANCHESKA Administration Sodium Chloride 1,000 mls @ 75 mls/hr 05/10/18 06:00 05/10/18 22:07 Normal Saline - IV 75 mls/hr ASDIR FRANCHESKA Administration Insulin Aspart 1 vial 05/10/18 22:00 05/10/18 21:41 Novolog Vial Sliding Scale - SQ 2 units ACHS FRANCHESKA Administration Protocol Insulin Detemir 20 units 05/10/18 22:00 05/10/18 21:41 Levemir Vial SQ 20 units HS FRANCHESKA Administration ASSESSMENT/PLAN:
[2018-05-11] MEDS: HEPARIN NA (PORCINE) 5,000 UNITS/ML 1ML VIAL SQ SCH ×2 (06:23→13:35)
[2018-05-11] MEDS: SODIUM CHLORIDE 1,000 ML IV SCH ×2 (06:25→11:32)
[2018-05-11] MEDS: INSULIN SLIDING SCALE (NOVOLOG) 1 VIAL SQ SCH ×2 (06:25→11:37)
[2018-05-11] MEDS ORDERED: INSULIN (NOVOLOG) ASPART 100 UNITS/ML 10ML VIAL ONE ×2 (06:36→11:20)
[2018-05-11 07:39] LABS: BASO % 0.5 % (0-2.0); EOS % 4.2 % (0-4.5); HEMATOCRIT 36.8 % (32.4-45.2); HEMOGLOBIN 12.8 GM/dL (10.7-15.3); MCH 28.4 pg (25.7-33.7); MCHC 34.7 g/dl (32.0-36.0); MEAN CELL VOLUME 81.9 fl (80-96); MEAN PLT VOLUME 8.2 fl (7.5-11.1); MONO % 6.8 % (3.8-10.2); NEUT % 43.5 % (42.8-82.8); PLATELET COUNT 344 K/MM3 (134-434); RDW 13.3 % (11.6-15.6); WHITE BLOOD COUNT 6.7 K/mm3 (4.0-10.0)
[2018-05-11 08:05] LABS: INR 1.07 (0.83-1.09); PROTHROMBIN TIME (PATIENT) 12.1 SEC (9.7-13.0)
[2018-05-11 08:07] LABS: CHLORIDE 106 mmol/L (98-107); POTASSIUM 3.7 mmol/L (3.5-5.1); SODIUM 142 mmol/L (136-145)
[2018-05-11 08:08] LABS: ACTIVATED PTT 33.2 SECONDS (25.2-36.5)
[2018-05-11 08:16] LABS: ALBUMIN 2.8 g/dl (3.4-5.0); ALK PHOS 71 U/L (45-117); ANION GAP 8 (8-16); BILIRUBIN,TOTAL 0.3 mg/dL (0.2-1.0); BLOOD UREA NITROGEN 10 mg/dL (7-18); CALCIUM 8.2 mg/dL (8.5-10.1); CO2 28 mmol/L (21-32); CREATININE 0.4 mg/dL (0.55-1.02); GLUCOSE,RANDOM 104 mg/dL (74-106); MAGNESIUM 1.7 mg/dL (1.8-2.4); PHOSPHOROUS 3.8 mg/dL (2.5-4.9); SGOT/AST 20 U/L (15-37); SGPT/ALT 31 U/L (12-78); TOT PROT 6.4 g/dl (6.4-8.2)
--- NOTE | 2018-05-11 08:50 | EKG ---
Test Reason : Blood Pressure : / mmHG Vent. Rate : 089 BPM Atrial Rate : 089 BPM P-R Int : 162 ms QRS Dur : 084 ms QT Int : 390 ms P-R-T Axes : 052 022 070 degrees QTc Int : 474 ms NORMAL SINUS RHYTHM NORMAL ECG NO PREVIOUS ECGS AVAILABLE Confirmed by SHRUTI PERKINS, SALVADOR ([id number]) on 05/11/2018 8:50:26 AM Referred By: Confirmed By:SALVADOR BAHENA MD
[2018-05-11] MEDS ORDERED: MAGNESIUM 1GM/D5W 100ML - 100 ML IVPB IVPB ONE (12:56)
[2018-05-11 13:06] VITALS: BP 111/61; PULSE 91; TEMP 98.7
[2018-05-11] MEDS ORDERED: PT OWN MED DRAWER 7, Y5N ONE (14:03)
--- NOTE | 2018-05-11 14:10 | PN ---
Teaching Attending Note Name of Resident: Azael Ponce ATTENDING PHYSICIAN STATEMENT I saw and evaluated the patient. I reviewed the resident's note and discussed the case with the resident. I agree with the resident's findings and plan as documented. SUBJECTIVE: Patient is comfortable, no further pain OBJECTIVE: Vital Signs Temperature 98.7 F 05/11/18 12:00 Pulse Rate 91 H 05/11/18 12:00 Respiratory Rate 18 05/11/18 12:00 Blood Pressure 111/61 05/11/18 12:00 O2 Sat by Pulse Oximetry (%) 98 05/11/18 11:00 CBCD WBC 6.7 K/mm3 (4.0-10.0) 05/11/18 06:00 RBC 4.50 M/mm3 (3.60-5.2) 05/11/18 06:00 Hgb 12.8 GM/dL (10.7-15.3) 05/11/18 06:00 Hct 36.8 % (32.4-45.2) 05/11/18 06:00 MCV 81.9 fl (80-96) 05/11/18 06:00 MCHC 34.7 g/dl (32.0-36.0) 05/11/18 06:00 RDW 13.3 % (11.6-15.6) 05/11/18 06:00 Plt Count 344 K/MM3 (134-434) 05/11/18 06:00 MPV 8.2 fl (7.5-11.1) 05/11/18 06:00 CMP Sodium 142 mmol/L (136-145) 05/11/18 06:00 Potassium 3.7 mmol/L (3.5-5.1) 05/11/18 06:00 Chloride 106 mmol/L (98-107) 05/11/18 06:00 Carbon Dioxide 28 mmol/L (21-32) 05/11/18 06:00 Anion Gap 8 (8-16) 05/11/18 06:00 BUN 10 mg/dL (7-18) 05/11/18 06:00 Creatinine 0.4 mg/dL (0.55-1.02) L 05/11/18 06:00 Creat Clearance w eGFR > 60 (>60) 05/11/18 06:00 Random Glucose 104 mg/dL (74-106) 05/11/18 06:00 Calcium 8.2 mg/dL (8.5-10.1) L 05/11/18 06:00 Total Bilirubin 0.3 mg/dL (0.2-1.0) 05/11/18 06:00 AST 20 U/L (15-37) 05/11/18 06:00 ALT 31 U/L (12-78) 05/11/18 06:00 Alkaline Phosphatase 71 U/L (45-117) 05/11/18 06:00 Total Protein 6.4 g/dl (6.4-8.2) 05/11/18 06:00 Albumin 2.8 g/dl (3.4-5.0) L 05/11/18 06:00 Current Medications Generic Name Dose Route Start Last Admin Trade Name Freq PRN Reason Stop Dose Admin Heparin Sodium (Porcine) 5,000 unit 05/10/18 06:00 05/11/18 13:35 Heparin - SQ 5,000 unit TID FRANCHESKA Administration Sodium Chloride 1,000 mls @ 75 mls/hr 05/10/18 06:00 05/11/18 11:32 Normal Saline - IV 75 mls/hr ASDIR FRANCHESKA Administration Insulin Aspart 1 vial 05/10/18 22:00 05/11/18 11:37 Novolog Vial Sliding Scale - SQ 2 units ACHS FRANCHESKA Administration Protocol Insulin Detemir 20 units 05/10/18 22:00 05/10/18 21:41 Levemir Vial SQ 20 units HS FRANCHESKA Administration Home Medications Medication Instructions Recorded Basaglar Kwikpen U-100 05/10/18 Novolog Flexpen See Protocol 05/10/18 abdomen: soft, NT. BS positive rest of PE per resident's note ASSESSMENT AND PLAN: Patient is a 37yo female with right sided abdominal pain, WBC normal, no shift, afebrile. Minimal discomfort on exam. Radiology reviewed large appendicolithis and tiny dependent gallstones on CT scan without acute inflammatory findings. No surgical indications at this time , no further intervention at this time. Plan to discharge the patient and follow with Dr.James brandon for further care. Patikaylah twas suggested no fat low carb diet. 35min
--- NOTE | 2018-05-11 14:36 | DS ---
Physical Exam: SUBJECTIVE: Patient seen and examined at bed side, no acute events over night , denies any fever, chills, N/V/D/C. pain has subsided , ready to be discharged home. OBJECTIVE: Vital Signs Period Temp Pulse Resp BP Sys/Naranjo Pulse Ox Last 24 Hr 97.8 F-98.7 F 81-100 18-18 111-149/61-86 98-100 PHYSICAL EXAM General: AAOx3 in NAD Lungs: CTA B/L Heart: RRR, no MRG Abdomen: soft, ND/NT, normal BS Neuro: no focal deficit Legs: +2 DP. No edema skin: warm , dry , normal trugor LABS Laboratory Results - last 24 hr 05/10/18 05/10/18 05/10/18 16:20 18:01 19:35 WBC RBC Hgb Hct MCV MCH MCHC RDW Plt Count MPV Absolute Neuts (auto) Neutrophils % Lymphocytes % Monocytes % Eosinophils % Basophils % Nucleated RBC % PT with INR INR PTT (Actin FS) Sodium Potassium Chloride Carbon Dioxide Anion Gap BUN Creatinine Creat Clearance w eGFR POC Glucometer 207 Random Glucose Calcium Phosphorus Magnesium Total Bilirubin AST ALT Alkaline Phosphatase Total Protein Albumin Blood Type O POSITIVE O POSITIVE Antibody Screen Negative 05/10/18 05/11/18 05/11/18 21:38 06:00 06:00 WBC 6.7 RBC 4.50 Hgb 12.8 Hct 36.8 MCV 81.9 MCH 28.4 MCHC 34.7 RDW 13.3 Plt Count 344 MPV 8.2 Absolute Neuts (auto) 2.9 Neutrophils % 43.5 D Lymphocytes % 45.0 H D Monocytes % 6.8 Eosinophils % 4.2 Basophils % 0.5 Nucleated RBC % 0 PT with INR 12.10 INR 1.07 PTT (Actin FS) 33.2 Sodium Potassium Chloride Carbon Dioxide Anion Gap BUN Creatinine Creat Clearance w eGFR POC Glucometer 174 Random Glucose Calcium Phosphorus Magnesium Total Bilirubin AST ALT Alkaline Phosphatase Total Protein Albumin Blood Type Antibody Screen 05/11/18 05/11/18 05/11/18 06:00 06:22 11:17 WBC RBC Hgb Hct MCV MCH MCHC RDW Plt Count MPV Absolute Neuts (auto) Neutrophils % Lymphocytes % Monocytes % Eosinophils % Basophils % Nucleated RBC % PT with INR INR PTT (Actin FS) Sodium 142 Potassium 3.7 Chloride 106 Carbon Dioxide 28 Anion Gap 8 BUN 10 Creatinine 0.4 L Creat Clearance w eGFR > 60 POC Glucometer 104 172 Random Glucose 104 Calcium 8.2 L Phosphorus 3.8 Magnesium 1.7 L Total Bilirubin 0.3 AST 20 ALT 31 Alkaline Phosphatase 71 Total Protein 6.4 Albumin 2.8 L Blood Type Antibody Screen CBC, BMP 05/11/18 06:00 05/11/18 06:00 05/09/18 * Abdominal US: Diffuse fatty infiltration of the liver * CT A/P: Diffuse fatty infiltration of the liver, Cholelithiasis without evidence of acute cholecystitis, Multiple appendicoliths with no CT Evidence of acute appendicitis, Right ovarian cyst HOSPITAL COURSE: Date of Admission:05/10/18 Date of Discharge: 05/11/18 pt presented to the hospital with biliary cholic pain was found to have choledocholithisis without cholecystitis , was treated with IV fluids and pain control , her symptoms has improved , surgeon Dr Ochoa was consulted and recommend no need for surgery as of now. pt will be discharged home and follow up with her PCP , Dr Ochoa Surgeon and Gi doctor Dr. Smith . Pt need to follow low fat diet and lose weight . she can return to hospital if her symptoms worsen. pt will resume all her home meds as before admission. Minutes to complete discharge: 50 Discharge Summary Reason For Visit: ABDOMINAL PAIN Current Active Problems Diabetes mellitus (Chronic) Fatty liver (Chronic) Condition: Stable - Instructions Diet, Activity, Other Instructions: You presented to the hospital due to abdominal pain , you were found to have small gall bladder stone but no need for surgery for now , you were treated with IV fluids and pain control. Please resume all your home meds as before admission Monitor your blood sugar closely and follow up with your sliver cutter Keep yourself hydrated . Stay away from fatty food, weight loss and stay away from Carbohydrate as well. Low carb. Low fat diet recommended. Follow up with your veneer stacker Dr. Smith within the next week or if symptoms persist. Follow with Dr.Jamesa Ochoa in 2 weeks for further care. Come back to the ER for any new, worsening or concerning symptom(fever, chills, Sever abdominal pain....). Referrals: Michael Smith MD [Staff Physician] - 1 Week Disposition: HOME - Home Medications Comprehensive Discharge Medication List: Ambulatory Orders [place] U-100 05/10/18 Novolog Flexpen See Protocol 05/10/18 This patient is new to me today: Yes Date on this admission: 05/11/18 Emergency Visit: Yes ED Registration Date: 05/10/18 Care time: The patient presented to the Emergency Department on the above date and was hospitalized for further evaluation of their emergent condition. Critical Care patient: No - Discharge Referral Referred to [facility] Med P.C[facility] No
== END 2018-05-11 15:48 | disposition home or self-care (01) ==
LOC: JER 17:01 → JERBED 05-10 00:59 → UNDOADMOB 05-10 01:08 → JERBED 05-10 01:08 → J5S 05-10 02:32 → JERBED 05-10 02:32
PROVIDERS: ADMIT Internal Medicine; ATTEND Internal Medicine
PROC: 3E033GC Introduction of Other Therapeutic Substance into Peripheral Vein, Percutaneous Approach (ICD-10-PCS; principal; 2018-05-10)
PROC: 3E0337Z Introduction of Electrolytic and Water Balance Substance into Peripheral Vein, Percutaneous Approach (ICD-10-PCS; 2018-05-10)
PROC: 3E013GC Introduction of Other Therapeutic Substance into Subcutaneous Tissue, Percutaneous Approach (ICD-10-PCS; 2018-05-10)
PROC: 3E013VG Introduction of Insulin into Subcutaneous Tissue, Percutaneous Approach (ICD-10-PCS; 2018-05-10)
DX: R10.11 Right upper quadrant pain (principal); K80.50 Calculus of bile duct without cholangitis or cholecystitis without obstruction; K38.9 Disease of appendix, unspecified; E11.9 Type 2 diabetes mellitus without complications; K76.0 Fatty (change of) liver, not elsewhere classified; Z79.4 Long term (current) use of insulin
CPT/HCPCS: 36415; 74176-TC; 76705-TC; 80053; 81003; 81015; 82962; 83690; 83735; 84100; 84703; 85025; 85610; 85730; 86850; 86900; 86901; 93005; 93010; 99284-25; G0378; J1644; J7030